=== PATIENT | female | born 1950 | race Caucasian/White ===

== ENCOUNTER 2018-05-06 09:59 | Emergency (ER) | payer OTHER, MEDICAID ==
[~2018-05-06] VITALS: Ht 157.5 cm; Wt 73.9 kg
[2018-05-06 10:59] VITALS: BP 127/71
== END 2018-05-06 10:59 | disposition home or self-care (01) ==
LOC: ED 09:59
DX: L72.8 Other follicular cysts of the skin and subcutaneous tissue (principal); Z98.890 Other specified postprocedural states

== ENCOUNTER 2018-09-21 10:41 | Emergency (ER) | payer MEDICARE, MEDICAID ==
[~2018-09-21] VITALS: Ht 157.5 cm; Wt 72.1 kg
[2018-09-21 10:49] VITALS: Ht 157.5 cm; Wt 72.1 kg
[2018-09-21 12:49] LABS: CALCIUM 8.3 mg/dL (8.5-10.1); CARBON DIOXIDE 30.6 mmol/L (21-32); CHLORIDE SERUM 107 mmol/L (98-107); CREATININE SERUM 0.8 mg/dL (0.6-1.0); GFR1 > 60 mL/min; GLUCOSE SERUM 99 mg/dL (74-106); POTASSIUM SERUM 3.7 mmol/L (3.5-5.1); SODIUM SERUM 143 mmol/L (136-145)
[2018-09-21 12:53] LABS: ALBUMIN 3.6 g/dL (3.4-5.0); ALKALINE PHOSPHATASE 94 U/L (46-116); ALT/SGPT 27 U/L (14-59); AST/SGOT 11 U/L (15-37); BILIRUBIN TOTAL 2.1 mg/dL (0.20-1.00); TOTAL PROTEIN, SERUM 7.2 g/dL (6.4-8.2)
[2018-09-21 12:56] LABS: BASOPHIL % 0.2 % (0-2); PLATELET COUNT 257 x10^3mcL (130-400); RED CELL DISTRIBUTION WIDTH 13.8 % (11.5-14.5)
[2018-09-21 13:05] LABS: microscopic required? YES; urine erythrocyte 2+ (NEGATIVE)
[2018-09-21 15:11] VITALS: BP 99/70
== END 2018-09-21 15:11 | disposition home or self-care (01) ==
LOC: ED 10:41
PROVIDERS: Emergency Medicine
DX: K57.32 Diverticulitis of large intestine without perforation or abscess without bleeding (principal); Z98.890 Other specified postprocedural states; Z90.89 Acquired absence of other organs
CPT/HCPCS: 36415; J1885